=== PATIENT | female | born 1945 | race Caucasian/White ===

== ENCOUNTER 2018-09-12 10:41 | Emergency (ER) | payer OTHER ==
[2018-09-12 11:56] VITALS: BP 148/88
== END 2018-09-12 14:07 | disposition home or self-care (01) ==
LOC: ED 10:41
DX: Z43.1 Encounter for attention to gastrostomy (principal); E11.9 Type 2 diabetes mellitus without complications; E03.9 Hypothyroidism, unspecified; E78.5 Hyperlipidemia, unspecified; Z98.890 Other specified postprocedural states
CPT/HCPCS: Q0092